=== PATIENT | female | born 2000 | race Caucasian/White ===

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

== ENCOUNTER 2022-03-18 18:32 | Emergency (ER) | payer BC, MEDICAID, SELFPAY ==
[2022-03-18 18:34] VITALS: BP 114/67; PULSE 89; RESP 18; TEMP 36.6; O2SAT 100; BMI 20.5
[2022-03-18 18:46] VITALS: BP 114/67; PULSE 89; RESP 18; TEMP 36.6; O2SAT 100
--- NOTE | 2022-03-18 18:50 | EX.ED.DYSGE1 ---
HPI <IRINA Del Real - Last Filed: 03/18/22 20:36> History of Present Illness Chief Complaint: General Illness Narrative Narrative: 21-year-old female with no PMH presents with multiple complaints. She states over the last 4 months she has had a dry red rash throughout most of her body. It is especially on her face and arms. She was prescribed an anti-itching pill and given a dermatology referral but did not follow-up. However this is not her primary concern?over the last 2 days she noticed boils in her pubic region and below her left knee. The area below her knee had a white pimple head and open spontaneously with pinpoint drainage. It is now more red and swollen today which is causing pain with ambulation. She also feels bumps beneath both armpits. No fever or chills. No recent new medications or antibiotics. PFSH <IRINA Del Real - Last Filed: 03/18/22 20:36> PFS Medical History (Updated 03/18/22 @ 19:55 by IRINA Del Real) Hx of mastitis Home Medications ondansetron 4 mg disintegrating tablet 4 mg PO Q8H PRN PRN Nausea #10 tabs 04/11/ [Rx Last Taken Unknown] cephalexin 500 mg capsule 500 mg PO Q6 7 days #28 CAPSULES 03/18/22 [Rx Last Taken Unknown] hydroxyzine HCl 25 mg tablet 25 mg PO TID PRN itching 7 days #21 tabs 03/18/22 [Rx Last Taken Unknown] naproxen 500 mg tablet 500 mg PO BID PRN #20 tabs 03/18/22 [Rx Last Taken Unknown] prednisone 20 mg tablet 20 mg PO DAILY #6 tabs 03/18/22 [Rx Last Taken Unknown] sulfamethoxazole 800 mg-trimethoprim 160 mg tablet (Bactrim DS) 1 tab PO BID 7 days #14 tabs 03/18/22 [Rx Last Taken Unknown] Allergy/AdvReac Type Severity Reaction Status Date / Time No Known Allergies Allergy Verified 03/18/22 18:36 Social History Smoking Status: Current every day smoker tobacco type: cigarettes ROS <IRINA Del Real - Last Filed: 03/18/22 20:36> ROS ED ROS Narrative Constitutional: Negative for fever, chills, malaise. Eyes: Negative for visual change. ENT: Negative for sore throat, ear pain, rhinorrhea. CVS: Negative for palpitations, chest pain, syncope. Respiratory: Negative for shortness of breath, cough, orthopnea. GI: Negative for abdominal pain, nausea, vomiting, diarrhea, constipation, melena, hematochezia. : Negative for dysuria, hematuria or frequency. Neuro: Negative for headache, motor/sensory dysfunction. Skin: Positive for rash. Musc: Negative for joint pain, swelling, trauma. Heme: Negative for easy bruising, bleeding, lymphadenopathy. EXAM <IRINA Del Real - Last Filed: 03/18/22 20:36> Physical Exam Narrative Exam Narrative: CONST: Patient sitting in no acute distress. EYES: Normal inspection. ENT: Normal inspection, no mucosal lesions, moist mucous membranes. NECK: Normal inspection. RESP: No respiratory distress, CTAB. CVS: Regular rate and rhythm, no murmur, no gallop. SKIN: Chronic red scaly extremely dry skin across her face chest back and arms. No vesicles or pustules, petechia or purpura, no warmth crepitus or fluctuance. 1 x 1 cm area of erythema mid pubic region with central eschar, no fluctuance or crepitus. EXTREMITIES: Normal appearance, inferior to left patella is a 4 x 4 centimeter area of erythema with tiny central eschar. There is no fluctuance or crepitus. There is no involvement of the joint itself and she has full range of motion, 2+ DP pulses. NEURO: Oriented x4. PSYCH: Normal affect. Const Vital Signs: 03/18/22 18:34 03/18/22 18:46 03/18/22 18:54 Temperature 97.9 F 97.9 F Temperature Source Temporal Temporal Pulse Rate 89 89 Respiratory Rate 18 18 Respiratory Effort Normal Non-Labored Blood Pressure 114/67 114/67 Blood Pressure Mean 82 82 Pulse Ox 100 100 Oxygen Delivery Method Room Air Room Air <Dr. Minor Ogden DO - Last Filed: 03/18/22 23:06> Physical Exam Const Vital Signs: 03/18/22 18:34 03/18/22 18:46 03/18/22 18:54 Temperature 97.9 F 97.9 F Temperature Source Temporal Temporal Pulse Rate 89 89 Respiratory Rate 18 18 Respiratory Effort Normal Non-Labored Blood Pressure 114/67 114/67 Blood Pressure Mean 82 82 Pulse Ox 100 100 Oxygen Delivery Method Room Air Room Air [facility] <IRINA Del Real - Last Filed: 03/18/22 20:36> [facility] Narrative Medical decision making narrative: Patient has a looks like cellulitis. She states at some purulent drainage previously. There is no abscess now. She also has a tiny area in the pubic region that looks similar like a prior abscess that drained. She will be placed on Bactrim/Keflex for these areas given naproxen for pain. She also has a chronic red dry rash over significant portion of her body for the last few months. It does not look cellulitic. No mucosal involvement or skin sloughing. No sign of SJS. I prescribed her oxazine and prednisone and she was given dermatology follow-up. <Dr. Minor Ogden DO - Last Filed: 03/18/22 23:06> [facility] Narrative Medical decision making narrative: Patient has a looks like cellulitis. She states at some purulent drainage previously. There is no abscess now. She also has a tiny area in the pubic region that looks similar like a prior abscess that drained. She will be placed on Bactrim/Keflex for these areas given naproxen for pain. She also has a chronic red dry rash over significant portion of her body for the last few months. It does not look cellulitic. No mucosal involvement or skin sloughing. No sign of SJS. I prescribed her oxazine and prednisone and she was given dermatology follow-up. Attending note: Patient seen and evaluated with public transit specialist. I perform my own [id number] evaluation. I agree with the plan of work-up. 2 days left knee redness and pain there was drainage since resolved. No fevers. No history of diabetes. In addition 4 months of generalized rash that is pruritic. She seen in the ED previously placed on steroids with improvement. Is trying to get in with dermatology appointment not till April. Exam infrapatellar swelling with scabbing. No fluctuance. There is erythema distally and to the medial aspect of the knee. There is no pain in the knee joint with movement. No active drainage. Skin scattered erythema face neck and upper torso. No indurations. No blistering's. Patient started on antibiotics for cellulitis of the knee this was outlined. Started on steroids with the pruritic dermatitis. She will continue her dermatology follow-up. Return precautions. All questions were answered. Discharge Plan Triage Chief Complaint: General Illness ED Midlevel Provider: Claudia Alexander ED Provider: Minor Ogden Dx/Rx/DC Orders Clinical Impression: Cellulitis of left leg, Chronic pruritic rash in adult Instructions: Cellulitis Dc Prescriptions: New prednisone 20 mg tablet 20 mg PO DAILY Qty: 6 0RF sulfamethoxazole-trimethoprim [Bactrim DS] 800-160 mg tablet 1 tab PO BID 7 Days Qty: 14 0RF cephalexin 500 mg capsule 500 mg PO Q6 7 Days Qty: 28 0RF hydroxyzine HCl 25 mg tablet 25 mg PO TID PRN (Reason: itching) 7 Days Qty: 21 0RF naproxen 500 mg tablet 500 mg PO BID PRN Qty: 20 0RF Continued ondansetron 4 MG tablet 4 mg PO Q8H PRN PRN (Reason: Nausea) Qty: 10 0RF Primary Care Provider: Nafisa Mullins Referrals: Nafisa Mullins MD [Primary Care Provider] - Phuc Perera MD [Med Staff - [employer]] - (Call for appointment) Activity Restrictions/Additional Instructions: I prescribed 2 antibiotics called Bactrim and Keflex to take for the skin infection below your knee. If this becomes worse come back to the ER. As for the rest of your rash I am not sure what is causing it but think you need to see dermatology. I prescribed hydroxyzine which helps with itching and prednisone which will hopefully help decrease the rash. Disposition Disposition: Home, Self Care Discharge Date/Time: 03/18/22 20:11
[2022-03-18] MEDS: Cephalexin 250 MG Capsule 500 MG PO (20:02)
[2022-03-18] MEDS: predniSONE 20 MG Tablet PO (20:02)
[2022-03-18] MEDS: Smz/Tmp Ds Tablet 1 TABLET PO (20:02)
== END 2022-03-18 20:11 | disposition home or self-care (01) ==
PROVIDERS: Emergency Provider Emergency Medicine; PCP Pediatrics; Visit Provider Emergency Medicine
DX: L03.116 Cellulitis of left lower limb (principal); F17.210 Nicotine dependence, cigarettes, uncomplicated
CPT/HCPCS: 99284